=== PATIENT | female | born 1985 | race Caucasian/White ===

== ENCOUNTER → 2016-05-17 | Outpatient (CLI) | payer MEDICAID ==
[~2016-05-17] MED LIST: ETODOLAC400 MG PO; GABAPENTIN 600600 MG PO; GABAPENTIN100 M2 PO; PERCOCET1 TA1 PO; SOMA 350MG TAB350 MG PO
[2016-05-17 14:32] LABS: AMPHETAMINES/METAMPHETAMINES NEGATIVE ng/mL (<1000)
[2016-05-24 06:36] LABS: Codeine Negative (Cutoff=100); Hydrocodone Positive (.); Hydromorphone Negative (Cutoff=100); Morphine Negative (Cutoff=100); Opiates Positive (.)
== END ==
LOC: LAB 13:26
PROVIDERS: Emergency Medicine
DX: Z79.899 Other long term (current) drug therapy (principal)